=== PATIENT | female | born 1955 | race Caucasian/White ===

== ENCOUNTER 2017-09-02 06:30 | Observation (INO) | payer OTHER ==
[2017-09-02] MEDS: SOD CHLORIDE 0.9% 1,000 ML IV ×3 (06:00→16:50)
[~2017-09-02 06:30] MED LIST: CEFAZOLIN 2 GM/50 ML (PMX) 50 ML IVPB
[2017-09-02] MEDS ORDERED: NALOXONE (0.4 MG/ML) INJ (07:00)
[2017-09-02] MEDS ORDERED: FENTAnyl 50 MCG/ML VIAL ×2 (08:44→09:05)
[2017-09-02] MEDS ORDERED: PROPOFOL 20 ML (08:44)
[2017-09-02] MEDS ORDERED: CEFAZOLIN 1 GM INJ (08:44)
[2017-09-02] MEDS ORDERED: MIDAZOLAM 1 MG/ML 2 ML INJ (08:44)
[2017-09-02] MEDS ORDERED: ROCURONIUM 50 MG INJ (08:44)
[2017-09-02] MEDS ORDERED: DIPHENHYDRAMINE 50 MG INJ IV (09:00)
[2017-09-02] MEDS ORDERED: METOCLOPRAMIDE 10 MG INJ IV (09:00)
[2017-09-02] MEDS ORDERED: LABETALOL HCL 20MG INJ IV (09:00)
[2017-09-02] MEDS ORDERED: ONDANSETRON 4 MG INJ IV (09:00)
[2017-09-02] MEDS ORDERED: HYDROmorphONE (0.2 MG/ML) 10ML SYG IV ×2 (09:00)
[2017-09-02] MEDS ORDERED: MEPERIDINE 25 MG INJ IV (09:00)
[2017-09-02] MEDS ORDERED: EPHEDrine SULFATE 50 MG/5 ML SYG IV (09:00)
[2017-09-02] MEDS ORDERED: hydrALAzine 20 MG INJ IV (09:00)
[2017-09-02] MEDS ORDERED: OXYCODONE/ACETAMINOPHEN (5/325) TAB PO (09:00)
[2017-09-02] MEDS ORDERED: FENTAnyl 50 MCG/ML VIAL IV ×2 (09:00)
[2017-09-02] MEDS: BUPIVACAINE 0.25% (MPF) 30 ML INJ (09:16)
[2017-09-02] MEDS ORDERED: DEXAMETHASONE 4 MG/ML 1 ML INJ (09:24)
[2017-09-02] MEDS ORDERED: METOCLOPRAMIDE 10 MG INJ (09:24)
[2017-09-02] MEDS ORDERED: SUGAMMADEX SODIUM 200 MG/2 ML VIAL IV (09:24)
[2017-09-02] MEDS ORDERED: ONDANSETRON 4 MG INJ (09:24)
[2017-09-02] MEDS ORDERED: ACETAMINOPHEN 1000MG/100ML IV 100 ML (09:24)
[2017-09-02] MEDS ORDERED: LABETALOL HCL 20MG INJ (09:26)
[2017-09-02] MEDS: CEFAZOLIN 2 GM/50 ML (PMX) 50 ML IVPB ×2 (10:00→16:52)
[2017-09-02] MEDS: FENTAnyl 50 MCG/ML VIAL IV (10:13)
[2017-09-02 10:49] LABS: ADD MAN DIFF? NO
[2017-09-02 10:50] LABS: WHITE BLOOD COUNT 8.3 10^3/ul (4.8-10.8)
[2017-09-02 10:51] LABS: HEMATOCRIT 36.7 % (37.0-47.0); HEMOGLOBIN 12.1 g/dl (12.0-16.0); LYMPHOCYTES % 23.7 % (15.0-51.0); MEAN CORPUSCULAR HEMOGLOBIN 29.7 pg (29.0-33.0); MEAN PLATELET VOLUME 9.2 fl (7.4-10.4); MONOCYTE # 0.2 10^3/ul (0.3-0.9); MONOCYTES % 2.9 % (0.0-11.0); NEUTROPHIL # 6.1 10^3/ul (1.6-7.5); NEUTROPHILS % 73.2 % (39.0-77.0); PLATELET COUNT 285 10^3/UL (140-415); RED BLOOD COUNT 4.08 10^6/ul (4.20-5.40); RED CELL DISTRIBUTION WIDTH 13.5 % (11.5-14.5)
[2017-09-02 11:15] LABS: ALANINE AMINOTRANSFERASE 16 IU/L (13-69); ALBUMIN 4.1 g/dl (3.3-4.9); ALBUMIN/GLOBULIN RATIO 1.13; ALKALINE PHOSPHATASE 98 IU/L (42-121); ANION GAP 15 (8-16); ASPARTATE AMINO TRANSFERASE 22 IU/L (15-46); BILIRUBIN,INDIRECT 0.4 mg/dl (0-1.1); BILIRUBIN,TOTAL 0.4 mg/dl (0.2-1.3); CARBON DIOXIDE 25 mmol/L (21-31); CHLORIDE 109 mmol/L (97-110); GLUCOSE 121 mg/dl (70-220); TOTAL PROTEIN 7.7 g/dl (6.1-8.1)
[2017-09-02] MEDS: HYDROmorphONE (0.2 MG/ML) 10ML SYG IV (11:16)
[2017-09-02 11:22] LABS: BLOOD UREA NITROGEN 13 mg/dl (7-20); CREATININE 0.62 mg/dl (0.44-1.00); SODIUM 145 mmol/L (135-144)
[2017-09-02] MEDS: HYDROCODONE/APAP (5/325) TAB PO (14:19)
[2017-09-02] MEDS: morphine 2 MG INJ IV (19:53)
[2017-09-03] MEDS: HYDROCODONE/APAP (5/325) TAB PO ×2 (00:11→10:05)
[2017-09-03] MEDS: CEFAZOLIN 2 GM/50 ML (PMX) 50 ML IVPB (01:33)
[2017-09-03] MEDS: morphine 2 MG INJ IV (03:17)
[2017-09-03 05:28] LABS: ADD MAN DIFF? NO
[2017-09-03 05:36] LABS: WHITE BLOOD COUNT 7.1 10^3/ul (4.8-10.8)
[2017-09-03 05:36] LABS: HEMATOCRIT 33.4 % (37.0-47.0); HEMOGLOBIN 11.2 g/dl (12.0-16.0); LYMPHOCYTES # 1.1 10^3/ul (0.8-2.9); MEAN CORPUSCULAR HEMOGLOBIN 30.4 pg (29.0-33.0); MEAN CORPUSCULAR HGB CONC 33.5 g/dl (32.0-37.0); MEAN CORPUSCULAR VOLUME 90.5 fl (82.0-101.0); MEAN PLATELET VOLUME 9.8 fl (7.4-10.4); MONOCYTE # 0.3 10^3/ul (0.3-0.9); MONOCYTES % 3.5 % (0.0-11.0); NEUTROPHIL # 5.7 10^3/ul (1.6-7.5); NEUTROPHILS % 80.4 % (39.0-77.0); PLATELET COUNT 280 10^3/UL (140-415); RED BLOOD COUNT 3.69 10^6/ul (4.20-5.40); RED CELL DISTRIBUTION WIDTH 13.4 % (11.5-14.5)
[2017-09-03] MEDS: SOD CHLORIDE 0.9% 1,000 ML IV (06:18)
[2017-09-03 07:45] LABS: ALANINE AMINOTRANSFERASE 12 IU/L (13-69); ALBUMIN 3.8 g/dl (3.3-4.9); ALBUMIN/GLOBULIN RATIO 1.18; ALKALINE PHOSPHATASE 81 IU/L (42-121); ANION GAP 15 (8-16); ASPARTATE AMINO TRANSFERASE 22 IU/L (15-46); BILIRUBIN,INDIRECT 0.2 mg/dl (0-1.1); BILIRUBIN,TOTAL 0.2 mg/dl (0.2-1.3); BLOOD UREA NITROGEN 18 mg/dl (7-20); CALCIUM 8.5 mg/dl (8.4-10.2); CARBON DIOXIDE 26 mmol/L (21-31); CHLORIDE 105 mmol/L (97-110); GLUCOSE 114 mg/dl (70-220); SODIUM 142 mmol/L (135-144)
[2017-09-03] MEDS: IBUPROFEN 600 MG TAB PO (13:32)
[2017-09-03] MEDS ORDERED: morphine LIQ (10 MG/5 ML) CUP PO (15:00)
[2017-09-06 17:16] LABS: PTH CALCIUM 8.3 mg/dL (8.6-10.4)
[2017-09-07 09:46] LABS: PTH INTACT 28 pg/mL (14-64)
== END 2017-09-03 14:58 | disposition home or self-care (01) ==
LOC: SDS 06:30 → REC 09:41 → MS1 11:40
DX: E21.3 Hyperparathyroidism, unspecified (principal); D35.1 Benign neoplasm of parathyroid gland; I10 Essential (primary) hypertension; E78.5 Hyperlipidemia, unspecified
CPT/HCPCS: 60500; 80053; 83970; 85025; 87086; 88307; 88331; 99217

== ENCOUNTER 2018-05-20 18:36 | Emergency (ER) | payer OTHER ==
[2018-05-20] MEDS: KETOROLAC 30 MG INJ IM (19:48)
== END 2018-05-20 20:27 | disposition home or self-care (01) ==
LOC: FTE 18:36
DX: M70.21 Olecranon bursitis, right elbow (principal); I10 Essential (primary) hypertension; Y93.9 Activity, unspecified
CPT/HCPCS: 73080; 73080-RT; 96372; 99284-25